=== PATIENT | female | born 1960 | race African-American/Black ===

== ENCOUNTER 2019-04-09 14:19 | Emergency (ER) | payer OTHER ==
[~2019-04-09] VITALS: Ht 152.4 cm; Wt 77.1 kg
[2019-04-09] MEDS ORDERED: LISINOPRIL10 MG ORAL (14:35)
[2019-04-09] MEDS ORDERED: METFORMIN HCL500 M1 ORAL (14:35)
[2019-04-09 14:37] VITALS: BP 183/75
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
[2019-04-09] MEDS ORDERED: NORCO 5-325 TA1 EACH ORAL (16:01)
[2019-04-09] MEDS ORDERED: CYCLOBENZAPRINE10 MG ORAL (16:02)
[2019-04-09 16:07] VITALS: BP 183/75
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
== END 2019-04-09 16:07 | disposition home or self-care (01) ==
LOC: EMR 15:00
DX: S39.012A Strain of muscle, fascia and tendon of lower back, initial encounter (principal); I10 Essential (primary) hypertension; E11.9 Type 2 diabetes mellitus without complications; M41.9 Scoliosis, unspecified; V43.92XA Unspecified car occupant injured in collision with other type car in traffic accident, initial encounter; Y92.9 Unspecified place or not applicable
CPT/HCPCS: 72020; 99283